=== PATIENT | male | born 1935 | race African-American/Black ===

== ENCOUNTER 2017-03-25 10:41 | Emergency (ER) | payer OTHER, MEDICARE ==
[2017-03-25] MEDS ORDERED: Sodium Chloride 0.9% 1,000 ML IV ONE (10:42)
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
== END 2017-03-25 14:34 | disposition expired ==
LOC: JD.ED 10:41 → MERGE 10:41 → JD.ED 14:34
DX: I46.9 Cardiac arrest, cause unspecified (principal); V53.6XXA Passenger in pick-up truck or van injured in collision with car, pick-up truck or van in traffic accident, initial encounter
CPT/HCPCS: 92950; 99285; G0390; J7040